=== PATIENT | female | born 1980 | race Caucasian/White ===

== ENCOUNTER → 2020-02-06 | Outpatient (CLI) | payer BC ==
[~2020-02-06] MED LIST: AMOXICILLIN500 MG PO; BENTYL20 MG PO; CLINDAMYCIN HC300 MG PO; CYCLOBENZAPRINE10 MG PO; HYDROCODONE BIT1 T11 PO; LEVAQUIN750 M1 PO; Motrin,Rufen800 MG PO; NAPROSYN500 MG PO; NORCO 325 MG-101 TAB PO; NORCO 5-325 TA1 EACH PO; Phenergan25 MG PO; VIBRAMYCIN100 MG PO; VICODIN 5/500 505 MG PO; VICODIN 500 MG-1 TAB PO; ZANTAC150 MG PO
== END | disposition home or self-care (01) ==
LOC: RAD 10:11
PROVIDERS: ATTEND Family Medicine
DX: R07.81 Pleurodynia (principal)

== ENCOUNTER 2023-05-08 16:06 | Emergency (ER) | payer BC ==
[~2023-05-08] VITALS: Ht 167.6 cm; Wt 108.9 kg
[2023-05-08 16:15] VITALS: BP 122/93
[2023-05-08] MEDS ORDERED: Motrin,Rufen800 MG PO (17:21)
[2023-05-08] MEDS ORDERED: SEPTDS PO (17:21)
== END 2023-05-08 17:35 | disposition home or self-care (01) ==
LOC: ED 16:06
DX: M79.5 Residual foreign body in soft tissue (principal); Z90.711 Acquired absence of uterus with remaining cervical stump; Z98.51 Tubal ligation status; Z90.49 Acquired absence of other specified parts of digestive tract

== ENCOUNTER → 2023-05-20 | Outpatient (CLI) | payer BC ==
[~2023-05-20] MED LIST changes: +SEPTDS PO
== END | disposition home or self-care (01) ==
LOC: MRI 01:46
PROVIDERS: ATTEND Orthopaedic Surgery
DX: S83.241A Other tear of medial meniscus, current injury, right knee, initial encounter (principal); M25.461 Effusion, right knee; X58.XXXA Exposure to other specified factors, initial encounter; Y93.89 Activity, other specified; Y92.89 Other specified places as the place of occurrence of the external cause; Y99.8 Other external cause status

== ENCOUNTER → 2024-06-29 | Outpatient (CLI) | payer BC | END | disposition home or self-care (01) | LOC: MAMMO 06-27 16:30 | PROVIDERS: ATTEND Nurse Practitioner | DX: Z12.31 Encounter for screening mammogram for malignant neoplasm of breast (principal) ==

== ENCOUNTER → 2024-09-29 | Outpatient (CLI) | payer BC | END | disposition home or self-care (01) | LOC: ORTHO 03:12 | PROVIDERS: ATTEND Orthopaedic Surgery | DX: M79.89 Other specified soft tissue disorders (principal); M25.562 Pain in left knee ==